=== PATIENT | female | born 1965 | race Caucasian/White ===

== ENCOUNTER → 2019-10-29 10:51 | Outpatient (CLI) | payer BC, SELFPAY ==
--- NOTE | 2019-10-29 | BRBX_PTH ---
PATIENT: EDWIN GUADARRAMA LOC: [facility] U#:[id number] AGE/SX: 59/F ROOM: RE10/29/[address]: Dr. Rose Arana MD : 1965 BED: DIS: SPEC #: [id number] RECD: 10/29/19 12:21 STATUS: DALILA RELouisa #: [id number] LORETTA: 10/29/19 00:[address]: Rose Arana DEPT: SURGICAL PATHOLOGY RECD BY: Branden Andujar ENTERED: 10/29/19 12:22 SP TYPE: BREAST BX OT DR: Dr. Tommie Ly III, MD Tissues: Left breast, NOS Procedures: Surgery Specimen Level IV HEADER OPERATION: Left breast stereotactic biopsy PRE-OP DIAGNOSIS: Left breast group pleomorphic calcifications superior lateral quadrant middle depth TISSUE SUBMITTED: Left breast tissue ISCHEMIC TIME: 1 minute FIXATION TIME: 8 hours MICROSCOPIC DIAGNOSIS Left breast, stereotactic biopsy: Fibrocystic change with clustered microcalcifications. Focal intraductal hyperplasia without atypia. No evidence of malignancy. AM:thais 10/30/19 MICROSCOPIC DESCRIPTION Slides are reviewed. GROSS DESCRIPTION Received is one container labeled with the patient's name and not further designated. The specimen consists of multiple elongated fragments of gallardo-yellow fibroadipose tissue that in aggregate measure 5 x 3 x 0.3 cm. The entire specimen is submitted in two cassettes. / SJ:thais 10/29/19 TC:5 CPT: 80206
--- NOTE | 2019-10-29 13:41 | PCM.OPRPT ---
Report of Operation Date of Procedure: 10/29/19 Pre-Operative Diagnosis: abnormal left breast mammograms Post-Operative Diagnosis: same Surgery/Procedure Performed:: left stereotactic breast biopsy Description of Surgical Findings:: calcifications in specimen Type of Anesthesia:: Local - 1% xylocaine Specimen's removed: left breast tissue Estimated Blood Loss (mL): minimal Description of Procedure: After informed consent was given, the patient was brought into the breast biopsy suite. Appropriate time out protocol was followed. She was then placed in the prone position on the stereotactic biopsy table. The patient?s left breast was then placed at the opening at the head of the table. A stem roller operator compression mammogram was then obtained in the CC view. The suspicious radiological lesion was then identified. Stereo pictures of the lesion were then taken for XYZ coordinates. The Mammotome biopsy stylus was then positioned where it would be entering into the patient?s breast. The skin at this site was then cleansed with a surgical skin preparation. The skin and subcutaneous tissues at this site were then infiltrated with 1% xylocaine. A small skin incision was made with an 11 blade scalpel. The biopsy stylus was then positioned into the patient?s breast at the proper coordinates of depth. Using the Mammotome vacuum-assist device, several core samples of breast tissue were obtained. A specimen mammogram was the obtained and revealed that the suspicious lesion was within the specimen. A hemostatic marker clip was then placed into the biopsy cavity and a stem roller operator film revealed that it was properly deployed. The patient was then placed in the supine position and pressure was applied to the breast until no active bleeding was noted. Steristrips were applied to reapproximate the skin. A unilateral mammogram in the CC and MLO view were then taken which revealed that the marker clip was in the same area as the previous suspicious lesion. The patient tolerated the procedure well and was discharged from the breast biopsy suite in good condition. - Complications none noted
--- NOTE | 2019-10-29 14:41 | NURSING ---
1200 held pressure for 5 minutes per doctors request, Dr. Senthil allan strip and dressed the incision, no bleeding, soft at site, reviewed discharge instructions and care with patient.
== END ==
PROVIDERS: PCP Family Medicine; Referring Provider Surgery; Visit Provider Surgery
DX: N60.12 Diffuse cystic mastopathy of left breast (principal); N62 Hypertrophy of breast
CPT/HCPCS: 19081; 88305; J7050

== ENCOUNTER 2020-10-31 13:22 | Outpatient (RCR) | payer BC, SELFPAY ==
[2020-10-31] MEDS: COVID-19 VACC, MRNA(PFIZER)/PF 30 MCG/0.3 ML SYRINGE IM (13:33)
[2020-11-21] MEDS: COVID-19 VACC, MRNA(PFIZER)/PF 30 MCG/0.3 ML SYRINGE IM (13:27)
== END 2020-10-31 23:59 ==
LOC: IMMUN 13:22
PROVIDERS: PCP Family Medicine; Visit Provider Family Medicine
DX: Z23 Encounter for immunization (principal)
CPT/HCPCS: 0001A; 0002A; 91300